=== PATIENT | male | born 1965 | race Caucasian/White ===

== ENCOUNTER 2019-03-23 18:44 | Observation (INO) ==
[2019-03-23 21:21] LABS: Basophils # 0.1 K/mcL (0.0-0.2); Basophils % 1.4 %; Eosinophils # 0.3 K/mcL (0.0-0.6); Eosinophils % 2.6 %; Hemoglobin 16.4 g/dL (12.9-16.9); Immature Granulocytes % 0.5 % (0-4); Lymphocytes # 2.4 K/mcL (0.6-4.6); Lymphocytes % 23.2 %; Mean Corpuscular HGB Conc 34.9 g/dL (31.6-35.5); Mean Corpuscular Hemoglobin 31.5 pg (28.0-33.3); Mean Corpuscular Volume 90.2 fL (83.0-100.0); Mean Platelet Volume 10.6 fL (9.4-12.4); Monocytes # 0.7 K/mcL (0.0-1.3); Monocytes % 6.4 %; Neutrophils # 6.8 K/mcL (1.6-8.9); Platelet Count 224 K/mcL (140-400); Red Blood Count 5.21 M/mcL (4.19-5.50); Red Cell Distribution Width 14.6 % (11.5-14.5); Segmented Neutrophils % 65.9 %; White Blood Count 10.4 K/mcL (4.3-11.1)
[2019-03-23 21:24] LABS: INR 0.9; Prothrombin Time 10.1 Seconds (9.4-12.1)
[2019-03-23 21:37] LABS: Alanine Aminotransferase 147 Units/L (7-52); Albumin 4.4 g/dL (3.5-5.7); Albumin/Globulin Ratio 1.2 (1.1-2.2); Alkaline Phosphatase 136 Units/L (34-104); Aspartate Amino Transferase 149 Units/L (13-39); BUN/Creatinine Ratio 10 (6-26); Bilirubin,Direct 0.2 mg/dL (0.0-0.2); Bilirubin,Indirect 0.6 mg/dL (0.0-1.0); Bilirubin,Total 0.8 mg/dL (0.3-1.0); Blood Urea Nitrogen 12 mg/dL (6-20); Calcium 9.9 mg/dL (8.6-10.3); Carbon Dioxide 31 mEq/L (23-29); Chloride 97 mEq/L (98-107); Globulin 3.6 g/dL (2.4-3.5); Glucose 148 mg/dL (70-105); Osmolality,Calculated 281 (280-300); Potassium 4.1 mEq/L (3.5-5.1); Sodium 134 mEq/L (136-145); eGFR For African Americans > 60 (> 60); eGFR For Non-African Americans > 60 (> 60)
[2019-03-23] MEDS ORDERED: Ipratropium/Albuterol Neb 3 ML IH ONE (21:42)
[2019-03-23 22:10] LABS: Bilirubin,Urine Negative (Negative); Blood,Urine Negative (Negative); Clarity,Urine Clear (Clear); Color,Urine Dark Yellow (Yellow); Glucose,Urine (UA) Normal (Normal); Ketones,Urine Negative (Negative); Leukocyte Esterase,Urine Trace (Negative); Nitrite,Urine Negative (Negative); Protein,Urine 30 mg/dL (Neg-Trace); Specific Gravity,Urine 1.024 (1.010-1.025); Urobilinogen,Urine Normal (Normal)
[2019-03-23 22:14] LABS: Bacteria,Urine None Seen per hpf (None-Few); Hyaline Casts,Urine None Seen per lpf (None-Few); RBC,Urine 0-3 per hpf (0-3); Squamous Epithelial Cell,Urine Moderate per lpf (None-Few)
[2019-03-23 22:16] LABS: Thyroid Stimulating Hormone 217.892 mcIU/mL (0.340-5.600)
[2019-03-23] MEDS ORDERED: Furosemide 40 MG/4 ML VIAL IVP ONE (22:22)
[2019-03-23 23:13] LABS: Lipase 63 Units/L (11-82)
[2019-03-23 23:46] LABS: Triiodothyronine (T3) Free 1.95 pg/mL (2.50-3.90)
[2019-03-24] MEDS ORDERED: Ondansetron 4 MG/2 ML VIAL IVP PRN (07:36)
[2019-03-24] MEDS ORDERED: Naloxone 0.4 MG/ML INJ IVP PRN (07:36)
[2019-03-24] MEDS ORDERED: Liothyronine Sodium 10 MCG/ML IVP ONE (08:08)
[2019-03-24] MEDS: Hydrocortisone Sodium Succ 100 MG/2 ML VIAL IVP SCH ×2 (08:33→14:29)
[2019-03-24] MEDS: Levothyroxine Sodium 100 MCG VIAL IVP SCH (08:33)
[2019-03-24] MEDS ORDERED: Levothyroxine Sodium 100 MCG VIAL IVP SCH (09:00)
[2019-03-24] MEDS ORDERED: Hydrocortisone Sodium Succ 100 MG/2 ML VIAL IVP SCH (09:00)
[2019-03-24] MEDS ORDERED: Perflutren Lipid Microsphere 1.3 ML in 0.9 % Sodium Chloride 8.7 ML IVP ONE (09:36)
[2019-03-24] MEDS ORDERED: Furosemide 40 MG/4 ML VIAL IVP ONE (14:17)
[2019-03-24] MEDS: *HR* Heparin 5,000 UNIT/ML VIAL SQ SCH (17:32)
[2019-03-25 04:17] LABS: Basophils # 0.1 K/mcL (0.0-0.2); Basophils % 0.7 %; Eosinophils % 0.3 %; Hematocrit 45.8 % (37.5-50.1); Hemoglobin 16.3 g/dL (12.9-16.9); Lymphocytes % 17.2 %; Mean Corpuscular HGB Conc 35.6 g/dL (31.6-35.5); Mean Corpuscular Volume 89.8 fL (83.0-100.0); Mean Platelet Volume 10.6 fL (9.4-12.4); Monocytes # 0.8 K/mcL (0.0-1.3); Monocytes % 7.2 %; Neutrophils # 8.4 K/mcL (1.6-8.9); Platelet Count 257 K/mcL (140-400); Red Cell Distribution Width 14.6 % (11.5-14.5); Segmented Neutrophils % 73.6 %; White Blood Count 11.5 K/mcL (4.3-11.1)
[2019-03-25 04:34] LABS: BUN/Creatinine Ratio 16 (6-26); Blood Urea Nitrogen 20 mg/dL (6-20); Calcium 9.9 mg/dL (8.6-10.3); Carbon Dioxide 30 mEq/L (23-29); Chloride 94 mEq/L (98-107); Glucose 316 mg/dL (70-105); Magnesium 2.1 mg/dL (1.6-2.6); Osmolality,Calculated 293 (280-300); Phosphorous 3.1 mg/dL (2.7-4.5); Sodium 134 mEq/L (136-145); eGFR For African Americans > 60 (> 60); eGFR For Non-African Americans > 60 (> 60)
[2019-03-25] MEDS: *HR* Heparin 5,000 UNIT/ML VIAL SQ SCH ×2 (05:15→17:41)
[2019-03-25] MEDS: Furosemide 40 MG/4 ML VIAL IVP SCH (07:35)
[2019-03-25] MEDS: Levothyroxine Sodium 100 MCG VIAL IVP SCH (07:35)
[2019-03-25] MEDS: Metoprolol XL (24 HR) Succ 25 MG TAB.ER.24H PO SCH (15:20)
[2019-03-26 05:20] LABS: Albumin 4.4 g/dL (3.5-5.7); Albumin/Globulin Ratio 1.2 (1.1-2.2); Bilirubin,Direct 0.1 mg/dL (0.0-0.2); Bilirubin,Indirect 0.5 mg/dL (0.0-1.0); Bilirubin,Total 0.6 mg/dL (0.3-1.0); Globulin 3.7 g/dL (2.4-3.5); Total Protein 8.1 g/dL (6.4-8.9)
[2019-03-26 05:21] LABS: BUN/Creatinine Ratio 21 (6-26); Blood Urea Nitrogen 26 mg/dL (6-20); Calcium 10.2 mg/dL (8.6-10.3); Carbon Dioxide 30 mEq/L (23-29); Chloride 98 mEq/L (98-107); Glucose 240 mg/dL (70-105); Osmolality,Calculated 299 (280-300); Sodium 138 mEq/L (136-145); eGFR For African Americans > 60 (> 60); eGFR For Non-African Americans > 60 (> 60)
[2019-03-26 05:37] LABS: Triiodothyronine (T3) Free 2.13 pg/mL (2.50-3.90)
[2019-03-26] MEDS: *HR* Heparin 5,000 UNIT/ML VIAL SQ SCH ×2 (06:32→18:25)
[2019-03-26] MEDS: Levothyroxine Sodium 100 MCG VIAL IVP SCH (09:29)
[2019-03-26] MEDS: Spironolactone 25 MG TABLET PO SCH (09:29)
[2019-03-26] MEDS: Furosemide 40 MG/4 ML VIAL IVP SCH (09:29)
[2019-03-26] MEDS: Metoprolol XL (24 HR) Succ 25 MG TAB.ER.24H PO SCH ×2 (09:30→23:17)
[2019-03-26] MEDS ORDERED: Dextrose Gel 15 GM/37.5 ML TUBE PO PRN ×2 (14:09)
[2019-03-26] MEDS ORDERED: *HR* Dextrose 50 % in Water (Syg) 50 ML SYRINGE IVP PRN (14:09)
[2019-03-26] MEDS ORDERED: D5% in Water 1,000 ML IVC PRN (14:09)
[2019-03-26] MEDS: Insulin LISPRO 300 UNITS/3 ML VIAL SQ SCH (18:24)
[2019-03-26] MEDS ORDERED: Insulin LISPRO 300 UNITS/3 ML VIAL SQ SCH (21:00)
[2019-03-27 05:53] LABS: BUN/Creatinine Ratio 24 (6-26); Blood Urea Nitrogen 29 mg/dL (6-20); Carbon Dioxide 25 mEq/L (23-29); Chloride 100 mEq/L (98-107); Glucose 229 mg/dL (70-105); Osmolality,Calculated 297 (280-300); Potassium 3.9 mEq/L (3.5-5.1); Sodium 137 mEq/L (136-145); eGFR For African Americans > 60 (> 60); eGFR For Non-African Americans > 60 (> 60)
[2019-03-27 06:13] LABS: Thyroid Stimulating Hormone 205.942 mcIU/mL (0.340-5.600); Triiodothyronine (T3) Free 1.92 pg/mL (2.50-3.90)
[2019-03-27] MEDS: *HR* Heparin 5,000 UNIT/ML VIAL SQ SCH (06:23)
[2019-03-27 07:37] VITALS: BP 128/86
[2019-03-27] MEDS: Insulin LISPRO 300 UNITS/3 ML VIAL SQ SCH ×2 (07:49→11:35)
[2019-03-27] MEDS: Furosemide 40 MG/4 ML VIAL IVP SCH (07:50)
[2019-03-27] MEDS: Levothyroxine Sodium 100 MCG VIAL IVP SCH (07:50)
[2019-03-27] MEDS: Spironolactone 25 MG TABLET PO SCH (07:50)
[2019-03-27] MEDS: Metoprolol XL (24 HR) Succ 25 MG TAB.ER.24H PO SCH (07:52)
[2019-03-27 08:48] LABS: Estimated Average Glucose 177 mg/dl
[2019-03-28 00:38] LABS: HCV Quant Log 7.25 log IU/mL
[2019-03-28 08:40] LABS: HCV Quant Interpretation DETECTED (Not Detected)
[2019-03-28 13:48] LABS: AFP Tumor Marker Non-Pregnant 36 ng/mL (0-9)
[2019-03-29 10:18] LABS: ANA IgG by ELISA NONE DETECTED (None Detected); F-Actin (sm muscle) Ab IgG 12 Units (0-19); HCV Quant Interpretation DETECTED (Not Detected); HCV Quant Log 7.63 log IU/mL; Serine Protease-3 Antibody 1 AU/mL (0-19)
[2019-03-31 11:01] LABS: HCV Genotype by Sequencing 1A OR 1B
== END 2019-03-27 11:27 | disposition home or self-care (01) ==
LOC: EMEROOARM 18:44 → 3ANU 18:44 → SUATTDRO 03-24 00:04 → 3ANU 03-24 00:25
PROVIDERS: ADMIT Family Medicine; ATTEND Internal Medicine

== ENCOUNTER 2019-04-06 06:53 | Observation (INO) ==
[2019-04-06] MEDS ORDERED: Furosemide 40 MG/4 ML VIAL IVP ONE ×2 (07:08→14:16)
[2019-04-06] MEDS ORDERED: Ipratropium/Albuterol Neb 3 ML IH ONE (07:08)
[2019-04-06 07:29] LABS: Basophils # 0.1 K/mcL (0.0-0.2); Basophils % 1.3 %; Eosinophils # 0.1 K/mcL (0.0-0.6); Eosinophils % 1.9 %; Hematocrit 37.5 % (37.5-50.1); Hemoglobin 13.1 g/dL (12.9-16.9); Immature Granulocytes % 0.5 % (0-4); Lymphocytes # 2.2 K/mcL (0.6-4.6); Lymphocytes % 29.5 %; Mean Corpuscular HGB Conc 34.9 g/dL (31.6-35.5); Mean Corpuscular Hemoglobin 32.1 pg (28.0-33.3); Mean Corpuscular Volume 91.9 fL (83.0-100.0); Mean Platelet Volume 10.8 fL (9.4-12.4); Monocytes # 0.5 K/mcL (0.0-1.3); Monocytes % 6.3 %; Neutrophils # 4.5 K/mcL (1.6-8.9); Platelet Count 183 K/mcL (140-400); Red Blood Count 4.08 M/mcL (4.19-5.50); Red Cell Distribution Width 14.5 % (11.5-14.5); Segmented Neutrophils % 60.5 %; White Blood Count 7.5 K/mcL (4.3-11.1)
[2019-04-06] MEDS ORDERED: Isovue-370 500 ML BOTTLE IVP ONE (07:52)
[2019-04-06 07:57] LABS: Troponin I 0.08 ng/mL (< 0.04)
[2019-04-06] MEDS ORDERED: Aspirin 81 MG TAB.CHEW PO ONE (07:59)
[2019-04-06 08:46] LABS: Bilirubin,Urine Negative (Negative); Blood,Urine Negative (Negative); Clarity,Urine Clear (Clear); Color,Urine Yellow (Yellow); Glucose,Urine (UA) Normal (Normal); Ketones,Urine Negative (Negative); Leukocyte Esterase,Urine Negative (Negative); Nitrite,Urine Negative (Negative); Protein,Urine Negative (Neg-Trace); Specific Gravity,Urine 1.011 (1.010-1.025); Urobilinogen,Urine Normal (Normal)
[2019-04-06 09:16] LABS: Alanine Aminotransferase 147 Units/L (7-52); Albumin 4.5 g/dL (3.5-5.7); Albumin/Globulin Ratio 1.4 (1.1-2.2); Alkaline Phosphatase 151 Units/L (34-104); Aspartate Amino Transferase 177 Units/L (13-39); BUN/Creatinine Ratio 27 (6-26); Bilirubin,Direct 0.1 mg/dL (0.0-0.2); Bilirubin,Indirect 0.3 mg/dL (0.0-1.0); Bilirubin,Total 0.4 mg/dL (0.3-1.0); Blood Urea Nitrogen 31 mg/dL (6-20); Calcium 9.1 mg/dL (8.6-10.3); Carbon Dioxide 23 mEq/L (23-29); Chloride 100 mEq/L (98-107); Globulin 3.2 g/dL (2.4-3.5); Glucose 214 mg/dL (70-105); Lipase 51 Units/L (11-82); Osmolality,Calculated 295 (280-300); Potassium 4.4 mEq/L (3.5-5.1); Sodium 136 mEq/L (136-145); Thyroid Stimulating Hormone 80.902 mcIU/mL (0.340-5.600); Total Protein 7.7 g/dL (6.4-8.9); Triiodothyronine (T3) Free 2.54 pg/mL (2.50-3.90); eGFR For African Americans > 60 (> 60); eGFR For Non-African Americans > 60 (> 60)
[2019-04-06 09:28] LABS: Magnesium 2.1 mg/dL (1.6-2.6)
[2019-04-06] MEDS ORDERED: Naloxone 0.4 MG/ML INJ IVP PRN (14:07)
[2019-04-06] MEDS ORDERED: Acetaminophen 325 MG TABLET PO PRN (14:07)
[2019-04-06] MEDS ORDERED: Albuterol 2.5 MG/3 ML NEBULIZER IH PRN (14:22)
[2019-04-06] MEDS ORDERED: D5% in Water 1,000 ML IVC PRN (15:10)
[2019-04-06] MEDS ORDERED: *HR* Dextrose 50 % in Water (Syg) 50 ML SYRINGE IVP PRN (15:10)
[2019-04-06] MEDS ORDERED: Dextrose Gel 15 GM/37.5 ML TUBE PO PRN ×2 (15:10)
[2019-04-06] MEDS: Ipratropium/Albuterol Neb 3 ML IH SCH ×2 (15:11→21:19)
[2019-04-06] MEDS: Azithromycin 250 MG TABLET PO SCH (17:11)
[2019-04-06] MEDS: Insulin LISPRO 300 UNITS/3 ML VIAL SQ SCH ×2 (17:11→20:38)
[2019-04-06] MEDS: Furosemide 40 MG/4 ML VIAL IVP SCH (20:35)
[2019-04-06] MEDS: Metoprolol XL (24 HR) Succ 25 MG TAB.ER.24H PO SCH (20:35)
[2019-04-07 01:36] LABS: Basophils # 0.1 K/mcL (0.0-0.2); Basophils % 1.1 %; Eosinophils # 0.2 K/mcL (0.0-0.6); Eosinophils % 2.2 %; Hematocrit 38.8 % (37.5-50.1); Hemoglobin 13.8 g/dL (12.9-16.9); Immature Granulocytes % 0.6 % (0-4); Lymphocytes # 2.3 K/mcL (0.6-4.6); Lymphocytes % 25.1 %; Mean Corpuscular HGB Conc 35.6 g/dL (31.6-35.5); Mean Corpuscular Hemoglobin 31.9 pg (28.0-33.3); Mean Corpuscular Volume 89.8 fL (83.0-100.0); Mean Platelet Volume 11.1 fL (9.4-12.4); Monocytes # 0.7 K/mcL (0.0-1.3); Monocytes % 7.7 %; Neutrophils # 5.7 K/mcL (1.6-8.9); Platelet Count 192 K/mcL (140-400); Red Blood Count 4.32 M/mcL (4.19-5.50); Red Cell Distribution Width 14.6 % (11.5-14.5); Segmented Neutrophils % 63.3 %
[2019-04-07 01:55] LABS: BUN/Creatinine Ratio 24 (6-26); Blood Urea Nitrogen 29 mg/dL (6-20); Calcium 9.2 mg/dL (8.6-10.3); Carbon Dioxide 30 mEq/L (23-29); Chloride 98 mEq/L (98-107); Glucose 157 mg/dL (70-105); Osmolality,Calculated 293 (280-300); Potassium 3.5 mEq/L (3.5-5.1); Sodium 137 mEq/L (136-145); eGFR For African Americans > 60 (> 60); eGFR For Non-African Americans > 60 (> 60)
[2019-04-07] MEDS: Ipratropium/Albuterol Neb 3 ML IH SCH ×4 (03:19→21:36)
[2019-04-07] MEDS: Furosemide 40 MG/4 ML VIAL IVP SCH ×2 (08:33→17:12)
[2019-04-07] MEDS: Metoprolol XL (24 HR) Succ 25 MG TAB.ER.24H PO SCH ×2 (08:34→20:01)
[2019-04-07] MEDS: Azithromycin 250 MG TABLET PO SCH (08:34)
[2019-04-07] MEDS: Insulin LISPRO 300 UNITS/3 ML VIAL SQ SCH ×4 (08:34→19:45)
[2019-04-07] MEDS: Spironolactone 25 MG TABLET PO SCH (08:34)
[2019-04-07] MEDS: *HR* Enoxaparin 40 MG/0.4 ML SYRINGE SQ SCH (12:04)
[2019-04-07] MEDS: Menthol 9.1 MG LOZENGE PO PRN ×2 (15:08→17:12)
[2019-04-07] MEDS: Budesonide/Formoterol 160/4.5 1 PUFF INH IH SCH (21:36)
[2019-04-08] MEDS: Ipratropium/Albuterol Neb 3 ML IH SCH ×2 (03:27→10:54)
[2019-04-08] MEDS: Budesonide/Formoterol 160/4.5 1 PUFF INH IH SCH ×2 (07:07→20:10)
[2019-04-08] MEDS: Spironolactone 25 MG TABLET PO SCH (08:05)
[2019-04-08] MEDS: Azithromycin 250 MG TABLET PO SCH (08:05)
[2019-04-08] MEDS: Metoprolol XL (24 HR) Succ 25 MG TAB.ER.24H PO SCH ×2 (08:05→19:18)
[2019-04-08] MEDS: Furosemide 40 MG/4 ML VIAL IVP SCH (08:05)
[2019-04-08] MEDS: *HR* Enoxaparin 40 MG/0.4 ML SYRINGE SQ SCH (08:06)
[2019-04-08] MEDS: Insulin LISPRO 300 UNITS/3 ML VIAL SQ SCH ×4 (08:06→19:17)
[2019-04-08 08:11] LABS: BUN/Creatinine Ratio 22 (6-26); Blood Urea Nitrogen 25 mg/dL (6-20); Calcium 9.3 mg/dL (8.6-10.3); Carbon Dioxide 30 mEq/L (23-29); Chloride 97 mEq/L (98-107); Glucose 280 mg/dL (70-105); Osmolality,Calculated 300 (280-300); Phosphorous 2.7 mg/dL (2.7-4.5); Potassium 3.5 mEq/L (3.5-5.1); Sodium 138 mEq/L (136-145); eGFR For African Americans > 60 (> 60); eGFR For Non-African Americans > 60 (> 60)
[2019-04-08] MEDS: Furosemide 40 MG TABLET PO SCH (17:00)
[2019-04-09 01:51] LABS: BUN/Creatinine Ratio 25 (6-26); Blood Urea Nitrogen 31 mg/dL (6-20); Calcium 9.4 mg/dL (8.6-10.3); Carbon Dioxide 30 mEq/L (23-29); Chloride 96 mEq/L (98-107); Glucose 273 mg/dL (70-105); Osmolality,Calculated 298 (280-300); Potassium 3.4 mEq/L (3.5-5.1); Sodium 136 mEq/L (136-145); eGFR For African Americans > 60 (> 60); eGFR For Non-African Americans > 60 (> 60)
[2019-04-09] MEDS: Budesonide/Formoterol 160/4.5 1 PUFF INH IH SCH (07:07)
[2019-04-09 07:20] VITALS: BP 121/88
[2019-04-09] MEDS: Spironolactone 25 MG TABLET PO SCH (08:01)
[2019-04-09] MEDS: Metoprolol XL (24 HR) Succ 25 MG TAB.ER.24H PO SCH (08:01)
[2019-04-09] MEDS: Furosemide 40 MG TABLET PO SCH (08:02)
[2019-04-09] MEDS: Insulin LISPRO 300 UNITS/3 ML VIAL SQ SCH (08:02)
[2019-04-09] MEDS: *HR* Enoxaparin 40 MG/0.4 ML SYRINGE SQ SCH (08:02)
[2019-04-09] MEDS: Azithromycin 250 MG TABLET PO SCH (08:02)
[2019-04-10] MEDS ORDERED: *HR* Enoxaparin 40 MG/0.4 ML SYRINGE SQ SCH (06:00)
== END 2019-04-09 11:30 | disposition home or self-care (01) ==
LOC: EMEROOARM 06:53 → 2ANU 06:53 → SUATTDRO 10:24 → 2ANU 12:01
PROVIDERS: ADMIT Internal Medicine; ATTEND Internal Medicine

== ENCOUNTER 2019-05-13 21:00 | Observation (INO) ==
[2019-05-13] MEDS ORDERED: Isovue-370 500 ML BOTTLE IVP ONE (21:20)
[2019-05-13 21:39] LABS: Bilirubin,Urine Small (Negative); Blood,Urine Negative (Negative); Clarity,Urine Clear (Clear); Color,Urine Dark Yellow (Yellow); Glucose,Urine (UA) Normal (Normal); Ketones,Urine 15 mg/dL (Negative); Leukocyte Esterase,Urine Negative (Negative); Nitrite,Urine Negative (Negative); Protein,Urine 30 mg/dL (Neg-Trace); Specific Gravity,Urine 1.027 (1.010-1.025); Urobilinogen,Urine Normal (Normal)
[2019-05-13 21:41] LABS: Bacteria,Urine None Seen per hpf (None-Few); RBC,Urine 0-3 per hpf (0-3); Squamous Epithelial Cell,Urine Few per lpf (None-Few); WBC,Urine 0-3 per hpf (0-3)
[2019-05-13 21:46] LABS: Amphetamine Screen,Urine Positive ng/mL (Cutoff=1000); Barbiturate Screen,Urine Negative ng/mL (Cutoff=200); Benzodiazepines Screen,Urine Negative ng/mL (Cutoff=200); Cannabinoid Screen,Urine Positive ng/mL (Cutoff = 50); Cocaine Screen,Urine Negative ng/mL (Cutoff= 300); Opiate Screen,Urine Negative ng/mL (Cutoff=300); Phencyclidine Screen,Urine Negative ng/mL (Cutoff=25)
[2019-05-13 21:54] LABS: Basophils # 0.1 K/mcL (0.0-0.2); Basophils % 1.1 %; Eosinophils # 0.2 K/mcL (0.0-0.6); Eosinophils % 2.3 %; Hemoglobin 12.1 g/dL (12.9-16.9); Immature Granulocytes % 0.2 % (0-4); Lymphocytes % 36.2 %; Mean Corpuscular HGB Conc 33.6 g/dL (31.6-35.5); Mean Corpuscular Hemoglobin 32.2 pg (28.0-33.3); Mean Corpuscular Volume 95.7 fL (83.0-100.0); Mean Platelet Volume 10.6 fL (9.4-12.4); Monocytes % 11.9 %; Platelet Count 201 K/mcL (140-400); Red Blood Count 3.76 M/mcL (4.19-5.50); Red Cell Distribution Width 12.4 % (11.5-14.5); Segmented Neutrophils % 48.3 %; White Blood Count 8.4 K/mcL (4.3-11.1)
[2019-05-13 22:10] LABS: Calcium Oxalate Crystals,Urine Present; Hyaline Casts,Urine Few per lpf (None-Few); Mucus,Urine Few per lpf (Few)
[2019-05-13 22:16] LABS: BUN/Creatinine Ratio 16 (6-26); Blood Urea Nitrogen 20 mg/dL (6-20); Calcium 9.1 mg/dL (8.6-10.3); Carbon Dioxide 22 mEq/L (23-29); Chloride 107 mEq/L (98-107); Glucose 133 mg/dL (70-105); Osmolality,Calculated 285 (280-300); Potassium 3.6 mEq/L (3.5-5.1); Sodium 135 mEq/L (136-145); eGFR For African Americans > 60 (> 60); eGFR For Non-African Americans > 60 (> 60)
[2019-05-13 22:22] LABS: Troponin I 0.04 ng/mL (< 0.04)
[2019-05-13] MEDS ORDERED: Aspirin 325 MG TABLET PO ONE (23:45)
[2019-05-13] MEDS ORDERED: Naloxone 0.4 MG/ML INJ IVP PRN (23:48)
[2019-05-14] MEDS ORDERED: *HR* Dextrose 50 % in Water (Syg) 50 ML SYRINGE IVP PRN (00:36)
[2019-05-14] MEDS ORDERED: Dextrose Gel 15 GM/37.5 ML TUBE PO PRN ×2 (00:36)
[2019-05-14] MEDS ORDERED: D5% in Water 1,000 ML IVC PRN (00:36)
[2019-05-14 03:06] LABS: Basophils # 0.1 K/mcL (0.0-0.2); Basophils % 1.3 %; Eosinophils # 0.2 K/mcL (0.0-0.6); Hematocrit 34.4 % (37.5-50.1); Hemoglobin 11.8 g/dL (12.9-16.9); Immature Granulocytes % 0.1 % (0-4); Lymphocytes # 2.8 K/mcL (0.6-4.6); Lymphocytes % 37.3 %; Mean Corpuscular HGB Conc 34.3 g/dL (31.6-35.5); Mean Corpuscular Volume 96.1 fL (83.0-100.0); Mean Platelet Volume 10.5 fL (9.4-12.4); Monocytes # 0.8 K/mcL (0.0-1.3); Monocytes % 11.2 %; Neutrophils # 3.5 K/mcL (1.6-8.9); Platelet Count 186 K/mcL (140-400); Red Blood Count 3.58 M/mcL (4.19-5.50); Red Cell Distribution Width 12.4 % (11.5-14.5); Segmented Neutrophils % 47.1 %; White Blood Count 7.4 K/mcL (4.3-11.1)
[2019-05-14 03:25] LABS: BUN/Creatinine Ratio 17 (6-26); Blood Urea Nitrogen 18 mg/dL (6-20); Calcium 8.8 mg/dL (8.6-10.3); Carbon Dioxide 24 mEq/L (23-29); Chloride 107 mEq/L (98-107); Glucose 124 mg/dL (70-105); Osmolality,Calculated 285 (280-300); Potassium 3.4 mEq/L (3.5-5.1); Sodium 136 mEq/L (136-145); eGFR For African Americans > 60 (> 60); eGFR For Non-African Americans > 60 (> 60)
[2019-05-14 03:32] LABS: Troponin I 0.05 ng/mL (< 0.04)
[2019-05-14] MEDS ORDERED: Tiotropium 18 MCG inhalation IH SCH (07:00)
[2019-05-14] MEDS: Insulin LISPRO 300 UNITS/3 ML VIAL SQ SCH ×3 (07:53→15:45)
[2019-05-14] MEDS ORDERED: Furosemide 40 MG TABLET PO SCH (08:00)
[2019-05-14] MEDS ORDERED: lisinopriL 5 MG TABLET PO SCH (09:00)
[2019-05-14] MEDS ORDERED: Metoprolol XL (24 HR) Succ 25 MG TAB.ER.24H PO SCH (09:00)
[2019-05-14] MEDS ORDERED: Spironolactone 25 MG TABLET PO SCH (09:00)
[2019-05-14] MEDS ORDERED: Budesonide/Formoterol 80/4.5 1 PUFF INH IH SCH (10:00)
[2019-05-14 11:27] VITALS: BP 112/65
== END 2019-05-14 16:42 | disposition home or self-care (01) ==
LOC: EMEROOARM 21:00 → 3BNU 21:00 → SUATTDRO 05-14 00:26 → 3BNU 05-14 00:44
PROVIDERS: ADMIT Student in an Organized Health Care Education/Training Program; ATTEND Internal Medicine

== ENCOUNTER 2021-12-14 10:15 | Inpatient (IN) ==
[2021-12-14] MEDS ORDERED: Ondansetron 4 MG/2 ML VIAL IVP ONE (10:37)
[2021-12-14] MEDS ORDERED: Iopamidol - 370 500 ML MLS IVP ONE (10:38)
[2021-12-14 10:55] LABS: Basophils # 0.1 K/mcL (0.0-0.2); Basophils % 1.1 %; Eosinophils # 0.2 K/mcL (0.0-0.6); Eosinophils % 1.8 %; Hemoglobin 17.1 g/dL (12.9-16.9); Immature Granulocytes % 0.4 % (0-4); Lymphocytes # 2.8 K/mcL (0.6-4.6); Lymphocytes % 21.3 %; Mean Corpuscular HGB Conc 34.9 g/dL (31.6-35.5); Mean Corpuscular Hemoglobin 31.5 pg (28.0-33.3); Mean Corpuscular Volume 90.2 fL (83.0-100.0); Mean Platelet Volume 10.5 fL (9.4-12.4); Monocytes # 0.9 K/mcL (0.0-1.3); Monocytes % 6.6 %; Neutrophils # 8.9 K/mcL (1.6-8.9); Platelet Count 235 K/mcL (140-400); Red Blood Count 5.43 M/mcL (4.19-5.50); Red Cell Distribution Width 12.9 % (11.5-14.5); Segmented Neutrophils % 68.8 %
[2021-12-14 11:03] LABS: Prothrombin Time 10.9 Seconds (9.4-12.1)
[2021-12-14 11:05] LABS: Activated Partial Thrombo Time 29.3 Seconds (26.0-36.0)
[2021-12-14 11:22] LABS: Bilirubin,Urine Negative (Negative); Blood,Urine Negative (Negative); Clarity,Urine Clear (Clear); Color,Urine Light-Yellow (Yellow); Glucose,Urine (UA) 300 mg/dL (Normal); Ketones,Urine Negative (Negative); Leukocyte Esterase,Urine Negative (Negative); Mucus,Urine Few per lpf (None-Few); Nitrite,Urine Negative (Negative); Protein,Urine 50 mg/dL (Neg-Trace); RBC,Urine 0-3 per hpf (0-3); Specific Gravity,Urine 1.022 (1.010-1.025); Squamous Epithelial Cell,Urine Few per hpf (None-Few); Urobilinogen,Urine Normal (Normal); WBC,Urine 0-3 per hpf (0-3)
[2021-12-14 11:28] LABS: Albumin 4.4 g/dL (3.5-5.7); Albumin/Globulin Ratio 1.2 (1.1-2.2); Bilirubin,Direct 0.1 mg/dL (0.0-0.2); Bilirubin,Indirect 0.4 mg/dL (0.0-1.0); Bilirubin,Total 0.5 mg/dL (0.3-1.0); Calcium 9.9 mg/dL (8.6-10.3); Globulin 3.8 g/dL (2.4-3.5); Magnesium 1.9 mg/dL (1.6-2.6); Potassium 4.2 mEq/L (3.5-5.1); Total Protein 8.2 g/dL (6.4-8.9); Troponin I 0.07 ng/mL (< 0.04)
[2021-12-14] MEDS ORDERED: 0.9 % Sodium Chloride 1,000 ML IV ONE (11:35)
[2021-12-14] MEDS ORDERED: Melatonin 3 MG TABLET PO PRN (12:58)
[2021-12-14] MEDS ORDERED: Ondansetron 4 MG/2 ML VIAL IVP PRN (12:58)
[2021-12-14] MEDS ORDERED: Naloxone 0.4 MG/ML INJ IVP PRN (12:58)
[2021-12-14] MEDS ORDERED: Ketorolac 30 MG/ML VIAL IM PRN (12:58)
[2021-12-14 13:39] LABS: Chol/HDL Ratio 3.4 (0-4.9)
[2021-12-14] MEDS: 0.9 % Sodium Chloride 1,000 ML IVC SCH (15:26)
[2021-12-14] MEDS: lisinopriL 5 MG TABLET PO SCH (15:26)
[2021-12-14] MEDS: Budesonide/Formoterol 80/4.5 1 PUFF INH IH SCH (20:03)
[2021-12-14] MEDS: Metoprolol XL (24 HR) Succ 25 MG TAB.ER.24H PO SCH (21:31)
[2021-12-15] MEDS: 0.9 % Sodium Chloride 1,000 ML IVC SCH ×2 (00:26→10:00)
[2021-12-15 03:06] LABS: Prothrombin Time 11.1 Seconds (9.4-12.1)
[2021-12-15 03:17] LABS: Alanine Aminotransferase 72 Units/L (7-52); Albumin/Globulin Ratio 1.2 (1.1-2.2); Alkaline Phosphatase 67 Units/L (34-104); Aspartate Amino Transferase 54 Units/L (13-39); BUN/Creatinine Ratio 14 (6-26); Bilirubin,Direct 0.2 mg/dL (0.0-0.2); Bilirubin,Indirect 0.5 mg/dL (0.0-1.0); Bilirubin,Total 0.7 mg/dL (0.3-1.0); Blood Urea Nitrogen 12 mg/dL (6-20); Calcium 9.1 mg/dL (8.6-10.3); Carbon Dioxide 25 mEq/L (23-29); Chloride 103 mEq/L (98-107); Globulin 3.4 g/dL (2.4-3.5); Glucose 194 mg/dL (70-105); Magnesium 1.8 mg/dL (1.6-2.6); Osmolality,Calculated 285 (280-300); Phosphorous 2.3 mg/dL (2.7-4.5); Potassium 4.1 mEq/L (3.5-5.1); Sodium 135 mEq/L (136-145); Total Protein 7.4 g/dL (6.4-8.9)
[2021-12-15] MEDS: *HR* Enoxaparin 40 MG/0.4 ML SYRINGE SQ SCH (05:35)
[2021-12-15] MEDS ORDERED: Tiotropium 10 INH DOSE IH ONE (07:27)
[2021-12-15] MEDS: Tiotropium 10 INH DOSE IH SCH (08:01)
[2021-12-15] MEDS: Budesonide/Formoterol 80/4.5 1 PUFF INH IH SCH ×2 (08:01→19:56)
[2021-12-15] MEDS ORDERED: Ketorolac 30 MG/ML VIAL IVP PRN (09:07)
[2021-12-15] MEDS: Metoprolol XL (24 HR) Succ 25 MG TAB.ER.24H PO SCH (09:14)
[2021-12-15] MEDS: lisinopriL 5 MG TABLET PO SCH (09:15)
[2021-12-15] MEDS ORDERED: *HR* Dextrose 50 % in Water (Syg) 50 ML SYRINGE IVP PRN (12:09)
[2021-12-15] MEDS ORDERED: D5% in Water 1,000 ML IVC PRN (12:09)
[2021-12-15] MEDS ORDERED: Dextrose Gel 15 GM/37.5 ML TUBE PO PRN ×2 (12:09)
[2021-12-15] MEDS: Insulin LISPRO 300 UNITS/3 ML VIAL SUBQ SCH (17:58)
[2021-12-15] MEDS ORDERED: Budesonide/Formoterol 80/4.5 1 PUFF INH IH SCH (22:00)
[2021-12-16 03:06] LABS: Hematocrit 46.3 % (37.5-50.1); Hemoglobin 15.6 g/dL (12.9-16.9); Mean Corpuscular HGB Conc 33.7 g/dL (31.6-35.5); Mean Corpuscular Hemoglobin 30.6 pg (28.0-33.3); Mean Corpuscular Volume 90.8 fL (83.0-100.0); Mean Platelet Volume 10.4 fL (9.4-12.4); Platelet Count 230 K/mcL (140-400); Red Cell Distribution Width 12.9 % (11.5-14.5); White Blood Count 10.9 K/mcL (4.3-11.1)
[2021-12-16 03:27] LABS: Alanine Aminotransferase 73 Units/L (7-52); Albumin/Globulin Ratio 1.1 (1.1-2.2); Alkaline Phosphatase 59 Units/L (34-104); Aspartate Amino Transferase 60 Units/L (13-39); BUN/Creatinine Ratio 13 (6-26); Bilirubin,Direct 0.3 mg/dL (0.0-0.2); Bilirubin,Indirect 0.6 mg/dL (0.0-1.0); Bilirubin,Total 0.9 mg/dL (0.3-1.0); Blood Urea Nitrogen 10 mg/dL (6-20); Calcium 9.4 mg/dL (8.6-10.3); Carbon Dioxide 23 mEq/L (23-29); Chloride 105 mEq/L (98-107); Globulin 3.8 g/dL (2.4-3.5); Glucose 166 mg/dL (70-105); Osmolality,Calculated 283 (280-300); Potassium 4.1 mEq/L (3.5-5.1); Sodium 135 mEq/L (136-145); Total Protein 7.8 g/dL (6.4-8.9)
[2021-12-16] MEDS: *HR* Enoxaparin 40 MG/0.4 ML SYRINGE SQ SCH (05:27)
[2021-12-16] MEDS: Budesonide/Formoterol 80/4.5 1 PUFF INH IH SCH (07:14)
[2021-12-16] MEDS: Tiotropium 10 INH DOSE IH SCH (07:15)
[2021-12-16 07:40] VITALS: BP 107/70; PULSE 78; TEMP 98.2
[2021-12-16] MEDS ORDERED: Furosemide 40 MG TABLET PO SCH (09:00)
[2021-12-16] MEDS ORDERED: Metoprolol XL (24 HR) Succ 25 MG TAB.ER.24H PO SCH (09:00)
[2021-12-16] MEDS ORDERED: Spironolactone 25 MG TABLET PO SCH (09:00)
[2021-12-16] MEDS ORDERED: lisinopriL 5 MG TABLET PO SCH (09:00)
[2021-12-16] MEDS ORDERED: Tiotropium 10 INH DOSE IH SCH (10:00)
[2021-12-16] MEDS: Insulin LISPRO 300 UNITS/3 ML VIAL SUBQ SCH (10:08)
[2021-12-16] MEDS: lisinopriL 5 MG TABLET PO SCH (10:10)
[2021-12-16 11:05] VITALS: O2SAT 96
== END 2021-12-16 10:59 | disposition home or self-care (01) | DRG 282 ==
LOC: EMEROOARM 10:15 → 2ANU 10:15 → SUATTDRO 13:09 → 2ANU 13:55
PROVIDERS: ADMIT Internal Medicine; ATTEND Pharmacist